=== PATIENT | female | born 1965 | race Two or more races ===

== ENCOUNTER 2020-07-26 08:29 | Outpatient (CLI) | payer OTHER | END 2020-07-26 08:36 | disposition home or self-care (01) | LOC: SONOGRAMA 08:29 | PROVIDERS: ATTEND Pathology Anatomic Pathology & Clinical Pathology | DX: E04.2 Nontoxic multinodular goiter (principal) ==

== ENCOUNTER 2023-03-18 16:03 | Outpatient (CLI) | payer OTHER | END 2023-03-18 23:00 | disposition home or self-care (01) | LOC: LAB 16:03 | PROVIDERS: ATTEND Urology | DX: N13.4 Hydroureter (principal); R31.1 Benign essential microscopic hematuria ==